=== PATIENT | male | born 1955 | race Hispanic/Latino ===

== ENCOUNTER → 2024-07-13 | Outpatient (CLI) | payer OTHER, MEDICARE ==
[2024-07-13 12:31] LABS: HEMOGLOBIN A1C 6.5 % (4.0-6.0)
[2024-07-13 15:39] LABS: CHOLESTEROL 78 mg/dL (<200); HDL CHOLESTEROL 41 mg/dL (29-71); LDL DIRECT 27 mg/dL (0-99); TRIGLYCERIDES 117 mg/dL (30-200)
== END | disposition home or self-care (01) ==
LOC: LAB 08:20
PROVIDERS: ATTEND Student in an Organized Health Care Education/Training Program
DX: I10 Essential (primary) hypertension (principal); I25.10 Atherosclerotic heart disease of native coronary artery without angina pectoris; E78.5 Hyperlipidemia, unspecified; Z79.899 Other long term (current) drug therapy
CPT/HCPCS: 36415; 80061; 83036